=== PATIENT | male | born 1970 ===

== ENCOUNTER 2020-12-14 17:43 | Emergency (ER) | payer BC, SELFPAY ==
--- NOTE | 2020-12-14 | ECG_ITS ---
Test Reason : CHEST PAIN Blood Pressure : / mmHG Vent. Rate : 100 BPM Atrial Rate : 100 BPM P-R Int : 176 ms QRS Dur : 084 ms QT Int : 340 ms P-R-T Axes : 062 020 038 degrees QTc Int : 438 ms Normal sinus rhythm Anteroseptal infarct , possibly acute Lateral injury pattern ACUTE NE / STEMI Abnormal ECG No previous ECGs available Referred By: Clyde Cabral Electronically Signed By:ELIS KIRKPATRICK
[2020-12-14 17:55] VITALS: BP 154/106; PULSE 103; RESP 21; O2SAT 96; BMI 35.2
[2020-12-14 17:56] VITALS: BP 146/88; PULSE 99
[2020-12-14] MEDS: Nitroglycerin 0.4 MG TAB.SUBL SUBLINGUAL (17:56)
--- NOTE | 2020-12-14 17:56 | ED.CHESTPAIN ---
HPI - Chest Pain General Chief Complaint: Chest Pain Stated Complaint: Chest pain Time Seen by Provider: 12/14/20 17:51 Source: patient Mode of arrival: ambulatory Limitations: no limitations History of Present Illness HPI narrative: Patient with no known coronary artery disease history of pre diabetes nonsmoker came for mid chest pain started at noon time it into the his back. With diaphoresis no nausea no vomiting no shortness of breath patient never had similar chest pain in the past no exposure to COVID no use of cocaine Related Data Allergies Allergy/AdvReac Type Severity Reaction Status Date / Time No Known Allergies Allergy Verified 12/14/20 17:52 Review of Systems Review of Systems: Yes all other systems are reviewed and are negative [facility] Social History Social History Advance Directives: No Advance Directives Information Provided: No Physical Exam Vital Signs: Vital Signs: Last Vital Signs Pulse 99 12/14/20 17:56 Resp 21 H 12/14/20 17:55 BP 146/88 H 12/14/20 17:56 Pulse Ox 96 12/14/20 17:55 Oxygen Flow Rate 2 12/14/20 17:55 Body Mass Index 35.2 Appearance: Alert. Oriented X3. Mild distress Eyes: PERRLA, No Nystagmus no pallor or icterus ENT: Pharynx normal. Oral Mucosa moist Neck: Normal inspection. Neck supple. CVS: Normal heart rate and rhythm. Pulses normal. No murmur or gallop Respiratory: No respiratory distress. Equal air entry bilateral, no wheezing/rales/rhonchi Abdomen: Soft and nontender. Bowel sounds are present, no mass palpable, no CVA tenderness Skin: Skin warm and dry. Normal skin color. Normal skin turgor. Extremities: No lower extremity edema. No calf tenderness Neuro: Oriented X 3. No motor deficit. No sensory deficit.No cerebellar signs , cranial nerves II-XII intact MDM - Chest Pain MDM Narrative Medical decision making narrative: 17:55Patient with anteroseptal STEMI likely main LAD/circumflex lesion started on aspirin heparin 5000 units Brilinta 180 mg Lipitor 80 mg, [facility] airport maintenance laborer was called Dr Malhotra accepted patient to airport maintenance laborer patient received nitroglycerin sublingually start feeling little better Lab Data Attestation: I reviewed the patient's lab results. Result diagrams: 12/14/20 18:01 12/14/20 18:01 Labs: Lab Results 12/14/20 12/14/20 12/14/20 Range/Units 18:01 18:01 18:01 WBC 11.1 H (4.8-10.8) X10*3/uL RBC 5.64 (4.60-5.80) X10*6/uL Hgb 18.0 (14.0-18.0) g/dl Hct 51.3 (42-52) % MCV 91.0 (80-98) fL MCH 31.9 (27.0-33.0) pg MCHC 35.1 (31.0-36.0) g/dl RDW 12.4 (11.0-16.0) % Plt Count 255 (160-400) X10*3/uL MPV 10.3 (9.4-12.4) fL Immature Gran % (Auto) 0.8 H (0.0-0.4) % Neut % (Auto) 68.8 (45-73) % Lymph % (Auto) 22.2 (20-40) % Dewitt % (Auto) 7.6 (2-11) % Eos % (Auto) 0.3 (0-4) % Baso % (Auto) 0.3 (0-2) % Lymph # (Auto) 2.5 (1.2-4.9) X10*3/uL Dewitt # (Auto) 0.8 (0.1-1.2) X10*3/uL Eos # (Auto) 0.0 (0.0-0.4) X10*3/uL Baso # (Auto) 0.0 (0.0-0.2) X10*3/uL Abs Immat Gran (auto) 0.09 H (0.00-0.03) X10*3/uL Absolute Neuts (auto) 7.7 (2.0-8.3) X10*3/uL Absolute Nucleated RBC 0.000 (0.0-0.012) X10*3/uL Nucleated RBC % (auto) 0.0 (0.0-0.2) /100WBC PT 11.4 (9.9-13.0) SEC INR 1.0 (0.9-1.1) APTT 35.2 (24.1-38.0) SEC Sodium 142 (135-145) mmol/L Potassium 4.0 (3.3-5.1) mmol/L Chloride 105 (96-108) mmol/L Carbon Dioxide 23 (22-29) mmol/L Anion Gap 18 (12-20) BUN 14 (9-16) mg/dL Creatinine 1.26 (0.5-1.4) mg/dL Estim Creat Clear Calc 94.0 Estimated GFR > 60 Random Glucose 153 H (60-115) mg/dL Calcium 10.3 H (8.4-10.2) mg/dL Total Bilirubin 0.7 (0.0-1.0) mg/dL AST 26 (5-37) U/L ALT 49 H (0-40) U/L Alkaline Phosphatase 59 (39-117) U/L Troponin I High Sens (<3.5-35.0) ng/L B-Natriuretic Peptide (<100) pg/mL Total Protein 8.3 H (6.5-8.0) g/dL Albumin 4.9 (3.5-5.0) g/dL COVID-19 (JOAN) (Negative) COVID-19 Clin Com 12/14/20 12/14/20 Range/Units 18:01 18:01 WBC (4.8-10.8) X10*3/uL RBC (4.60-5.80) X10*6/uL Hgb (14.0-18.0) g/dl Hct (42-52) % MCV (80-98) fL MCH (27.0-33.0) pg MCHC (31.0-36.0) g/dl RDW (11.0-16.0) % Plt Count (160-400) X10*3/uL MPV (9.4-12.4) fL Immature Gran % (Auto) (0.0-0.4) % Neut % (Auto) (45-73) % Lymph % (Auto) (20-40) % Dewitt % (Auto) (2-11) % Eos % (Auto) (0-4) % Baso % (Auto) (0-2) % Lymph # (Auto) (1.2-4.9) X10*3/uL Dewitt # (Auto) (0.1-1.2) X10*3/uL Eos # (Auto) (0.0-0.4) X10*3/uL Baso # (Auto) (0.0-0.2) X10*3/uL Abs Immat Gran (auto) (0.00-0.03) X10*3/uL Absolute Neuts (auto) (2.0-8.3) X10*3/uL Absolute Nucleated RBC (0.0-0.012) X10*3/uL Nucleated RBC % (auto) (0.0-0.2) /100WBC PT (9.9-13.0) SEC INR (0.9-1.1) APTT (24.1-38.0) SEC Sodium (135-145) mmol/L Potassium (3.3-5.1) mmol/L Chloride (96-108) mmol/L Carbon Dioxide (22-29) mmol/L Anion Gap (12-20) BUN (9-16) mg/dL Creatinine (0.5-1.4) mg/dL Estim Creat Clear Calc Estimated GFR Random Glucose (60-115) mg/dL Calcium (8.4-10.2) mg/dL Total Bilirubin (0.0-1.0) mg/dL AST (5-37) U/L ALT (0-40) U/L Alkaline Phosphatase (39-117) U/L Troponin I High Sens 49.0 H* (<3.5-35.0) ng/L B-Natriuretic Peptide 61 (<100) pg/mL Total Protein (6.5-8.0) g/dL Albumin (3.5-5.0) g/dL COVID-19 (JOAN) Negative (Negative) COVID-19 Clin Com See Note ECG Data ECG #1: Attestation: I personally reviewed and interpreted this ECG as follows: Interpretation: Normal sinus rhythm heart rate [address] elevation in anteroseptal leads from V2 to V5 about 5 mm with reciprocal changes in inferior leads impression acute STEMI Discharge Plan Discharge Clinical Impression: ST elevation myocardial infarction (STEMI) Qualifiers: Involved coronary artery: LAD coronary artery Qualified Code(s): I21.02 - ST elevation (STEMI) myocardial infarction involving left anterior descending coronary artery Patient Disposition: Xfer Acute [facility] Hospital Transfer Details: To [facility] airport maintenance laborer under Dr. Chew Interventions: Acute Care Transfer Worksheet (ED) Last Done: 12/14/20 18:46 Discharge Date/Time: 12/14/20 19:11
[2020-12-14] MEDS: Aspirin 81 MG TAB.CHEW 324 MG PO (18:01)
[2020-12-14] MEDS: Ticagrelor 90 MG TABLET 180 MG PO (18:02)
[2020-12-14] MEDS: 0.9 % Sodium Chloride 1,000 ML 999 ML IVCONT (18:04)
[2020-12-14] MEDS: Atorvastatin Calcium 80 MG TABLET PO (18:05)
[2020-12-14 18:08] LABS: MANUAL DIFF FLAG NO
[2020-12-14] MEDS: Heparin Sodium,Porcine 5,000 UNIT/ML VIAL 5000 UNIT IVPUSH (18:11)
[2020-12-14] MEDS: Morphine Sulfate 4 MG/ML CARTRIDGE IVPUSH (18:23)
[2020-12-14] MEDS: ondansetron HCL 4 MG/2 ML VIAL IVPUSH (18:24)
[2020-12-14 18:27] LABS: COVID-19 Test Negative (Negative)
[2020-12-14 18:30] LABS: Basophils Percent Auto 0.3 % (0-2); Eosinophils Percent Auto 0.3 % (0-4); Hematocrit 51.3 % (42-52); Imm Gran Abs Auto 0.09 X10*3/uL (0.00-0.03); Imm Gran Pct Auto 0.8 % (0.0-0.4); Lymphocytes Absolute Auto 2.5 X10*3/uL (1.2-4.9); Lymphocytes Percent Auto 22.2 % (20-40); Mean Corpuscular HGB Conc 35.1 g/dl (31.0-36.0); Mean Corpuscular Hemoglobin 31.9 pg (27.0-33.0); Mean Platelet Volume 10.3 fL (9.4-12.4); Monocytes Absolute Auto 0.8 X10*3/uL (0.1-1.2); Monocytes Percent Auto 7.6 % (2-11); Neutrophils Absolute Auto 7.7 X10*3/uL (2.0-8.3); Neutrophils Percent Auto 68.8 % (45-73); Platelet Count 255 X10*3/uL (160-400); Red Blood Count 5.64 X10*6/uL (4.60-5.80); Red Cell Distribution Width 12.4 % (11.0-16.0); White Blood Count 11.1 X10*3/uL (4.8-10.8)
--- NOTE | 2020-12-14 18:32 | PC.NURSE ---
Pt alert and oriented, brought to ed by friend. Pt reported that he began having chest pain on and off this morning and he thought it would go away. However the pain got worse as the day went on. Stat EKG done which showed pt was had a STEMI. [place] [facility] [place] given to receiving RN.
[2020-12-14 18:33] LABS: Prothrombin Time 11.4 SEC (9.9-13.0)
[2020-12-14 18:35] LABS: Partial Thromboplastin Time 35.2 SEC (24.1-38.0)
[2020-12-14 18:36] LABS: Alanine Aminotransferase 49 U/L (0-40); Albumin Level 4.9 g/dL (3.5-5.0); Alkaline Phosphatase 59 U/L (39-117); Anion Gap 18 (12-20); Aspartate Amino Transferase 26 U/L (5-37); Bilirubin Total 0.7 mg/dL (0.0-1.0); Blood Urea Nitrogen 14 mg/dL (9-16); Calcium 10.3 mg/dL (8.4-10.2); Carbon Dioxide 23 mmol/L (22-29); Chloride 105 mmol/L (96-108); Estimated Glomerular Filt Rate > 60; Glucose Random 153 mg/dL (60-115); Sodium 142 mmol/L (135-145); Total Protein 8.3 g/dL (6.5-8.0)
[2020-12-14 18:43] LABS: B Type Natriuretic Peptide 61 pg/mL (<100)
== END 2020-12-14 19:11 | disposition short-term general hospital (02) ==
LOC: HO.ED 19:08
PROVIDERS: Nurse Practitioner Family; Emergency Provider Internal Medicine
DX: I21.02 ST elevation (STEMI) myocardial infarction involving left anterior descending coronary artery (principal); R07.9 Chest pain, unspecified; R06.02 Shortness of breath; R73.03 Prediabetes; Z20.822 Contact with and (suspected) exposure to COVID-19; Z79.899 Other long term (current) drug therapy
CPT/HCPCS: 36415; 80053; 83880; 84484; 85025; 85610; 85730; 87635; 93005; 96365; 96375; 99285; J2270; J2405